=== PATIENT | female | born 1990 | race Caucasian/White ===

== ENCOUNTER 2018-04-22 12:54 | Emergency (ER) | payer OTHER ==
[2018-04-22 13:27] LABS: ADD MAN DIFF? NO
[2018-04-22 13:29] LABS: BASOPHILS % 0.3 % (0.0-2.0); EOSINOPHILS % 0.6 % (0.0-7.0); HEMATOCRIT 34.9 % (37.0-47.0); HEMOGLOBIN 11.5 g/dl (12.0-16.0); LYMPHOCYTES # 2.2 10^3/ul (0.8-2.9); LYMPHOCYTES % 30.4 % (15.0-51.0); MEAN CORPUSCULAR VOLUME 85.1 fl (82.0-101.0); MONOCYTE # 0.4 10^3/ul (0.3-0.9); MONOCYTES % 5.7 % (0.0-11.0); NEUTROPHIL # 4.5 10^3/ul (1.6-7.5); NEUTROPHILS % 62.6 % (39.0-77.0); PLATELET COUNT 276 10^3/UL (140-415); RED CELL DISTRIBUTION WIDTH 12.7 % (11.5-14.5)
[2018-04-22 13:29] LABS: WHITE BLOOD COUNT 7.2 10^3/ul (4.8-10.8)
[2018-04-22 13:42] LABS: PROTIME 13.3 Sec (11.9-14.9)
[2018-04-22 13:43] LABS: PARTIAL THROMBOPLASTIN TIME 24.1 Sec (23.0-35.0)
[2018-04-22] MEDS: SOD CHLORIDE 0.9% 1,000 ML IV (13:58)
[2018-04-22 15:45] LABS: ALANINE AMINOTRANSFERASE 11 IU/L (13-69); ALBUMIN/GLOBULIN RATIO 1.42; ALKALINE PHOSPHATASE 39 IU/L (42-121); ANION GAP 10 (5-13); ASPARTATE AMINO TRANSFERASE 21 IU/L (15-46); BILIRUBIN,INDIRECT 0.2 mg/dl (0-1.1); BILIRUBIN,TOTAL 0.2 mg/dl (0.2-1.3); BLOOD UREA NITROGEN 13 mg/dl (7-20); CALCIUM 9.5 mg/dl (8.4-10.2); CARBON DIOXIDE 22 mmol/L (21-31); CHLORIDE 107 mmol/L (97-110); CREATININE 0.56 mg/dl (0.44-1.00); Estimated GFR > 60 mL/min (>60); GLUCOSE 93 mg/dl (70-220); POTASSIUM 3.4 mmol/L (3.5-5.1); SODIUM 139 mmol/L (135-144); TOTAL PROTEIN 6.8 g/dl (6.1-8.1)
[2018-04-22 16:01] LABS: ADD UMIC YES; UR ASCORBIC ACID NEGATIVE (NEGATIVE); UR BACTERIA FEW /HPF (NONE SEEN); UR BILIRUBIN (Dip) NEGATIVE (NEGATIVE); UR BLOOD (Dip) NEGATIVE (NEGATIVE); UR CLARITY CLOUDY (CLEAR); UR COLOR YELLOW (YELLOW); UR GLUCOSE (Dip) NEGATIVE (NEGATIVE); UR KETONES (Dip) 1+ mg/dL (NEGATIVE); UR LEUKOCYTE ESTERASE (Dip) NEGATIVE Leu/ul (NEGATIVE); UR MUCUS MANY /HPF (NONE SEEN); UR NITRITE (Dip) POSITIVE (NEGATIVE); UR RBC 1 /HPF (0-5); UR SPECIFIC GRAVITY (Dip) 1.021 (1.003-1.030); UR SQUAMOUS EPITHELIAL CELL MODERATE /HPF (FEW); UR TOTAL PROTEIN (Dip) NEGATIVE (NEGATIVE); UR UROBILINOGEN (Dip) NEGATIVE (NEGATIVE); UR WBC 6 /HPF (0-5)
== END 2018-04-22 16:45 | disposition home or self-care (01) ==
LOC: E/R 16:45
DX: O99.89 Other specified diseases and conditions complicating pregnancy, childbirth and the puerperium (principal); N83.201 Unspecified ovarian cyst, right side; O34.81 Maternal care for other abnormalities of pelvic organs, first trimester; R55 Syncope and collapse; Z3A.12 12 weeks gestation of pregnancy
CPT/HCPCS: 36415; 76801; 80053; 81001; 85025; 85610; 85730; 93005; 99285-25

== ENCOUNTER 2018-09-10 14:35 | Outpatient (CLI) | payer OTHER ==
[2018-09-10 15:55] LABS: ADD UMIC YES; UR ASCORBIC ACID NEGATIVE (NEGATIVE); UR BACTERIA MODERATE /HPF (NONE SEEN); UR BILIRUBIN (Dip) NEGATIVE (NEGATIVE); UR BLOOD (Dip) 1+ mg/dL (NEGATIVE); UR CLARITY CLOUDY (CLEAR); UR COLOR AMBER (YELLOW); UR GLUCOSE (Dip) NEGATIVE (NEGATIVE); UR KETONES (Dip) 1+ mg/dL (NEGATIVE); UR LEUKOCYTE ESTERASE (Dip) 2+ Leu/ul (NEGATIVE); UR MUCUS FEW /HPF (NONE SEEN); UR NITRITE (Dip) NEGATIVE (NEGATIVE); UR RBC 4 /HPF (0-5); UR SPECIFIC GRAVITY (Dip) 1.015 (1.003-1.030); UR SQUAMOUS EPITHELIAL CELL MODERATE /HPF (FEW); UR TOTAL PROTEIN (Dip) 1+ mg/dl (NEGATIVE); UR UROBILINOGEN (Dip) 1+ mg/dL (NEGATIVE); UR WBC > 182 /HPF (0-5)
[2018-09-10 16:05] LABS: ADD MAN DIFF? NO
[2018-09-10 16:08] LABS: WHITE BLOOD COUNT 8.8 10^3/ul (4.8-10.8)
[2018-09-10 16:08] LABS: BASOPHILS % 0.3 % (0.0-2.0); EOSINOPHILS # 0.1 10^3/ul (0.0-0.5); EOSINOPHILS % 1.2 % (0.0-7.0); HEMATOCRIT 32.1 % (37.0-47.0); HEMOGLOBIN 10.6 g/dl (12.0-16.0); LYMPHOCYTES # 2.3 10^3/ul (0.8-2.9); MEAN CORPUSCULAR HEMOGLOBIN 28.6 pg (29.0-33.0); MEAN CORPUSCULAR VOLUME 86.8 fl (82.0-101.0); MEAN PLATELET VOLUME 8.9 fl (7.4-10.4); MONOCYTE # 0.7 10^3/ul (0.3-0.9); MONOCYTES % 7.7 % (0.0-11.0); NEUTROPHIL # 5.7 10^3/ul (1.6-7.5); NEUTROPHILS % 64.3 % (39.0-77.0); PLATELET COUNT 271 10^3/UL (140-415); RED CELL DISTRIBUTION WIDTH 13.7 % (11.5-14.5)
[2018-09-10 16:27] LABS: ALANINE AMINOTRANSFERASE 14 IU/L (13-69); ALBUMIN 3.5 g/dl (3.3-4.9); ALBUMIN/GLOBULIN RATIO 1.34; ALKALINE PHOSPHATASE 99 IU/L (42-121); ANION GAP 6 (5-13); ASPARTATE AMINO TRANSFERASE 21 IU/L (15-46); BILIRUBIN,INDIRECT 0.5 mg/dl (0-1.1); BILIRUBIN,TOTAL 0.5 mg/dl (0.2-1.3); BLOOD UREA NITROGEN 10 mg/dl (7-20); CALCIUM 9.4 mg/dl (8.4-10.2); CARBON DIOXIDE 25 mmol/L (21-31); CHLORIDE 106 mmol/L (97-110); CREATININE 0.57 mg/dl (0.44-1.00); Estimated GFR > 60 mL/min (>60); GLUCOSE 67 mg/dl (70-220); POTASSIUM 4.1 mmol/L (3.5-5.1); SODIUM 137 mmol/L (135-144); TOTAL PROTEIN 6.1 g/dl (6.1-8.1)
== END 2018-09-10 18:19 | disposition home or self-care (01) ==
LOC: OBT 14:35 → L-D 14:35 → OBT 18:19
DX: O26.893 Other specified pregnancy related conditions, third trimester (principal); Z3A.32 32 weeks gestation of pregnancy; R42 Dizziness and giddiness
CPT/HCPCS: 80053; 81001; 85025; 87210

== ENCOUNTER 2018-10-16 09:36 | Inpatient (IN) | payer OTHER ==
[2018-10-16 10:42] LABS: ADD MAN DIFF? NO
[2018-10-16] MEDS ORDERED: AMPICILLIN 2 GM/NS (PMX) 100 ML (10:43)
[2018-10-16 10:52] LABS: BASOPHILS % 0.2 % (0.0-2.0); EOSINOPHILS # 0.1 10^3/ul (0.0-0.5); HEMATOCRIT 29.5 % (37.0-47.0); HEMOGLOBIN 9.7 g/dl (12.0-16.0); LYMPHOCYTES # 2.7 10^3/ul (0.8-2.9); LYMPHOCYTES % 26.5 % (15.0-51.0); MEAN CORPUSCULAR HEMOGLOBIN 28.5 pg (29.0-33.0); MEAN CORPUSCULAR HGB CONC 32.9 g/dl (32.0-37.0); MEAN CORPUSCULAR VOLUME 86.8 fl (82.0-101.0); MEAN PLATELET VOLUME 9.1 fl (7.4-10.4); MONOCYTE # 0.6 10^3/ul (0.3-0.9); MONOCYTES % 5.8 % (0.0-11.0); NEUTROPHIL # 6.8 10^3/ul (1.6-7.5); NEUTROPHILS % 65.9 % (39.0-77.0); PLATELET COUNT 270 10^3/UL (140-415)
[2018-10-16 10:52] LABS: WHITE BLOOD COUNT 10.4 10^3/ul (4.8-10.8)
[2018-10-16 10:56] LABS: INR 0.94; PARTIAL THROMBOPLASTIN TIME 27.5 Sec (23.0-35.0); PROTIME 12.7 Sec (11.9-14.9)
[2018-10-16] MEDS: AMPICILLIN 2 GM/NS (PMX) 100 ML IV (10:58)
[2018-10-16] MEDS: LACTATED RINGER'S 1,000 ML IV ×3 (10:58→14:30)
[2018-10-16] MEDS ORDERED: METHYLERGONOVINE 0.2 MG INJ IM ×2 (11:00→18:00)
[2018-10-16] MEDS ORDERED: MISOPROSTOL 200 MCG TAB PR ×2 (11:00→18:00)
[2018-10-16] MEDS ORDERED: CARBOPROST 250 MCG INJ IM ×2 (11:00→18:00)
[2018-10-16] MEDS ORDERED: OXYTOCIN 30 UNITS/LR 500 ML IV ×2 (11:00→18:00)
[2018-10-16 12:27] LABS: HEPATITIS B SURFACE ANTIGEN NEGATIVE (NEGATIVE)
[2018-10-16 13:18] LABS: AMPHETAMINE/METHAMPHETAMINE NEGATIVE (NEGATIVE); BARBITURATES NEGATIVE (NEGATIVE); BENZODIAZEPINES NEGATIVE (NEGATIVE); CANNABINOIDS NEGATIVE (NEGATIVE); COCAINE NEGATIVE (NEGATIVE); OPIATES NEGATIVE (NEGATIVE)
[2018-10-16 14:00] LABS: HIV 1&2 ANTIBODY NEGATIVE (NEGATIVE)
[2018-10-16] MEDS: AMPICILLIN 1 GM/NS (PMX) 50 ML IV (14:02)
[2018-10-16] MEDS: BUTORPHANOL 2 MG INJ IV (15:25)
[2018-10-16] MEDS: LIDOCAINE 1% (MPF) 30 ML INJ INJ (17:25)
[2018-10-16] MEDS: OXYTOCIN 30 UNITS/LR 500 ML IV ×3 (17:37→22:39)
[2018-10-16] MEDS: IBUPROFEN 600 MG TAB PO (17:58)
[2018-10-16] MEDS ORDERED: SENNA/DOCUSATE NA (8.6MG/50MG) TAB PO (18:00)
[2018-10-16] MEDS ORDERED: OXYCODONE/ASPIRIN (4.88/325) TAB PO (18:00)
[2018-10-16] MEDS ORDERED: ZOLPIDEM 5 MG TAB PO (18:00)
[2018-10-16] MEDS ORDERED: NACL 0.9% 3 ML SYG IV (18:00)
[2018-10-16 20:24] LABS: RAPID PLASMA REAGIN NONREACTIVE (NR)
[2018-10-16] MEDS: SENNA/DOCUSATE NA (8.6MG/50MG) TAB PO (22:42)
[2018-10-17] MEDS: IBUPROFEN 600 MG TAB PO ×4 (00:40→18:56)
[2018-10-17] MEDS: WITCH HAZEL/GLYCERIN PAD PR (06:41)
[2018-10-17] MEDS: LANOLIN HPA 1 PKT TOP (06:41)
[2018-10-17] MEDS: BENZOCAINE 20% 56 ML SPRAY TOP (06:41)
[2018-10-17 08:40] LABS: ADD MAN DIFF? NO
[2018-10-17 08:47] LABS: BASOPHILS % 0.2 % (0.0-2.0); EOSINOPHILS # 0.1 10^3/ul (0.0-0.5); EOSINOPHILS % 0.7 % (0.0-7.0); HEMATOCRIT 26.6 % (37.0-47.0); HEMOGLOBIN 8.7 g/dl (12.0-16.0); LYMPHOCYTES # 3.3 10^3/ul (0.8-2.9); LYMPHOCYTES % 24.8 % (15.0-51.0); MEAN CORPUSCULAR HEMOGLOBIN 28.4 pg (29.0-33.0); MEAN CORPUSCULAR HGB CONC 32.7 g/dl (32.0-37.0); MEAN CORPUSCULAR VOLUME 86.9 fl (82.0-101.0); MEAN PLATELET VOLUME 9.1 fl (7.4-10.4); MONOCYTE # 0.8 10^3/ul (0.3-0.9); MONOCYTES % 6.3 % (0.0-11.0); NEUTROPHIL # 8.9 10^3/ul (1.6-7.5); NEUTROPHILS % 67.1 % (39.0-77.0); PLATELET COUNT 227 10^3/UL (140-415); RED BLOOD COUNT 3.06 10^6/ul (4.20-5.40); RED CELL DISTRIBUTION WIDTH 13.7 % (11.5-14.5)
[2018-10-17 08:47] LABS: WHITE BLOOD COUNT 13.3 10^3/ul (4.8-10.8)
[2018-10-17] MEDS: SENNA/DOCUSATE NA (8.6MG/50MG) TAB PO ×2 (10:06→21:24)
[2018-10-17 18:27] LABS: RUBELLA ANTIBODY - IGG 1.07 index
[2018-10-18] MEDS: IBUPROFEN 600 MG TAB PO ×3 (00:35→13:30)
[2018-10-18] MEDS: DIPHTH/TET/ACEL PERTUSS (ADULT) 0.5 ML VIAL IM* (09:00)
[2018-10-18] MEDS: SENNA/DOCUSATE NA (8.6MG/50MG) TAB PO (09:21)
[2018-10-19 11:16] LABS: RUBELLA ANTIBODY - IGM <20.00 AU/mL
== END 2018-10-18 15:50 | disposition home or self-care (01) | DRG 807 ==
LOC: OBT 09:36 → L-D 09:38 → OBT 09:45 → L-D 10:01 → PP1 19:39
PROC: 10E0XZZ Delivery of Products of Conception, External Approach (ICD-10-PCS; principal; 2018-10-16)
PROC: 3E033VJ Introduction of Other Hormone into Peripheral Vein, Percutaneous Approach (ICD-10-PCS; 2018-10-16)
DX: O60.13X0 Preterm labor second trimester with preterm delivery third trimester, not applicable or unspecified (principal); O69.81X0 Labor and delivery complicated by cord around neck, without compression, not applicable or unspecified; O76 Abnormality in fetal heart rate and rhythm complicating labor and delivery; O99.02 Anemia complicating childbirth; Z3A.36 36 weeks gestation of pregnancy; Z37.0 Single live birth
CPT/HCPCS: 76815; 80307; 85025; 85610; 85730; 86592; 86703; 86762; 86850; 86900; 86901; 87340; 99464